=== PATIENT | male | born 1980 | race Hispanic/Latino ===

== ENCOUNTER 2018-07-21 17:31 | Emergency (ER) | payer BC ==
[2018-07-21] MEDS ORDERED: MAGNE/ALUM HYDROXD 30 ML UCUP ONE (18:37)
[2018-07-21] MEDS ORDERED: ONDANSETRON 4 MG/2 ML VIAL ONE (18:37)
[2018-07-21] MEDS ORDERED: LIDOCAINE VISCOUS 2% SOLN 15 ML UDC ONE (18:37)
[2018-07-21] MEDS ORDERED: NA CHLORIDE 0.9% 1,000 ML ONE (18:38)
[2018-07-21] MEDS ORDERED: FAMOTIDINE 20 MG/2 ML VIAL IV ONE (18:38)
[2018-07-21 18:43] LABS: Absolute Monocytes 0.6 K/uL (0.1-1.3); Absolute Neutrophil 4.3 K/uL (1.8-8.0); Basophils % 0.9 % (0-1.3); Eosinophils % 5.3 % (0-4.4); Hematocrit 43.8 % (39.6-49.0); Lymphocytes % 27.1 % (15.3-44.8); MPV 9.4 fL (7.6-11.3); Monocytes % 8.4 % (3.3-12.3); RBC Red Blood Cell Count 4.75 M/uL (4.33-5.43)
[2018-07-21 18:52] LABS: Protime INR 0.94
--- NOTE | 2018-07-21 18:52 | RAD REPORT ---
EXAM DESCRIPTION: RAD - Chest Single View - 07/21/2018 6:45 pm CLINICAL HISTORY: CHEST PAIN Chest pain. COMPARISON: No comparisons FINDINGS: Portable technique limits examination quality. The lungs are grossly clear. The heart is normal in size. No displaced fractures. IMPRESSION: No acute intrathoracic process suspected.
[2018-07-21 19:13] LABS: ALT/SGPT 59 U/L (12-78); AST/SGOT 24 U/L (15-37); Albumin 3.5 g/dL (3.4-5.0); Alkaline Phosphatase 67 U/L (45-117); BUN Blood Urea Nitrogen 15 mg/dL (7-18); Bicarbonate 26 mmol/L (21-32); Bilirubin Direct 0.1 mg/dL (0-0.2); Bilirubin Total 0.4 mg/dL (0.2-1.0); Glucose Level 95 mg/dL (74-106); Lipase 207 U/L (73-393); NT PRO-BNP 82 pg/mL (<125); Potassium 3.7 mmol/L (3.5-5.1); Protein, Total 6.8 g/dL (6.4-8.2); Sodium Level 142 mmol/L (136-145); Troponin (Emerg Dept Use Only) < 0.02 ng/mL (0.0-0.045)
--- NOTE | 2018-07-21 20:18 | ER ---
Nurse's Notes [facility] Name: Heber Morris Age: 37 yrs Sex: Male : 1980 Arrival Date: 07/21/2018 Time: 17:34 Bed 13 Private MD: Ronn Carr R Diagnosis: Epigastric pain Presentation: 07/21 17:36 Presenting complaint: Patient states: midsternal, epigastric area chest pain started sv Thursday, c/o "burping a lot", "hard to breathe". Transition of care: patient was not received from another setting of care. Onset of symptoms was July 18, 2018. Care prior to arrival: None. 17:36 Method Of Arrival: Ambulatory sv 17:36 Acuity: APOLONIA 3 sv 20:33 Risk Assessment: Do you want to hurt yourself or someone else? Patient reports no rr5 desire to harm self or others. Initial Sepsis Screen: Does the patient meet any 2 criteria? No. Patient's initial sepsis screen is negative. Does the patient have a suspected source of infection? No. Patient's initial sepsis screen is negative. Historical: - Allergies: 17:37 No Known Allergies; sv - PMHx: 17:37 None; sv - PSHx: 17:37 Appendectomy; Back; sv - Immunization history:: Adult Immunizations unknown. - Social history:: Smoking status: Patient uses tobacco products. - Ebola Screening: : Patient negative for fever greater than or equal to 101.5 degrees Fahrenheit, and additional compatible Ebola Virus Disease symptoms Patient denies exposure to infectious person Patient denies travel to an Ebola-affected area in the 21 days before illness onset. Screenin:20 Abuse screen: Denies threats or abuse. Denies injuries from another. Nutritional bp screening: No deficits noted. Tuberculosis screening: No symptoms or risk factors identified. Fall Risk None identified. Assessment: 18:00 General: Appears in no apparent distress. comfortable, Behavior is calm, cooperative, bp appropriate for age. Pain: Complains of pain in epigastric area Pain does not radiate. Pain began suddenly. Neuro: Level of Consciousness is awake, alert, obeys commands, Oriented to person, place, time, situation, Appropriate for age. Cardiovascular: Rhythm is sinus rhythm. Respiratory: Airway is patent Respiratory effort is even, unlabored, Respiratory pattern is regular, symmetrical. GI: Reports indigestion. : No signs and/or symptoms were reported regarding the genitourinary system. EENT: No deficits noted. Derm: No deficits noted. Musculoskeletal: Circulation, motion, and sensation intact. Range of motion: intact in all extremities. 19:00 General: Appears in no apparent distress. comfortable, Behavior is calm, cooperative, rr5 appropriate for age. Pain: Complains of pain in back Pain does not radiate. Pain currently is 5 out of 10 on a pain scale. Quality of pain is described as aching, Pain began gradually, Is intermittent, chronic. 19:00 Neuro: Level of Consciousness is awake, alert, obeys commands, Oriented to person, rr5 place, time, situation, Appropriate for age. Cardiovascular: Capillary refill < 3 seconds Patient's skin is warm and dry. Respiratory: Airway is patent Respiratory effort is even, unlabored, Respiratory pattern is regular, symmetrical. GI: Abdomen is round Patient currently denies abdominal pain. : No signs and/or symptoms were reported regarding the genitourinary system. EENT: No signs and/or symptoms were reported regarding the EENT system. Derm: Skin is intact, Skin temperature is warm. Musculoskeletal: Capillary refill < 3 seconds, Range of motion: intact in all extremities. 19:50 Reassessment: Patient appears in no apparent distress at this time. Patient is alert, rr5 oriented x 3, equal unlabored respirations, skin warm/dry/pink. went for ultrasound. 20:30 Reassessment: Patient appears in no apparent distress at this time. Patient is alert, rr5 oriented x 3, equal unlabored respirations, skin warm/dry/pink. ED provider explained the plan of care. discharge instruction given and explained without complaints made. Patient states feeling better. Patient states symptoms have improved. Vital Signs: 17:37 BP 141 / 93; Pulse 96; Resp 20; Temp 97.6; Pulse Ox 97% on R/A; Weight 113.4 kg; Height sv 6 ft. 1 in. (185.42 cm); Pain 4/10; 19:00 BP 122 / 78; Pulse 90; Resp 17; Temp 98.5; Pulse Ox 99% ; Pain 5/10; rr5 20:00 BP 125 / 70; Pulse 89; Resp 17; Pulse Ox 99% ; rr5 20:30 BP 130 / 80; Pulse 76; Resp 17; Pulse Ox 100% ; rr5 17:37 Body Mass Index 32.98 (113.40 kg, 185.42 cm) sv ED Course: 17:34 Patient arrived in ED. mr 17:34 Ronn Carr MD is Private Physician. mr 17:37 Triage completed. sv 17:38 Josh Man, RN is Primary Nurse. bp 17:38 Arm band placed on. sv 17:47 EKG done, by radio frequency technician. reviewed by Fadi Colby MD. sm3 17:50 Fadi Esquivel PA is PHCP. cp 17:50 Fadi Colby MD is Attending Physician. cp 18:20 Patient has correct armband on for positive identification. Bed in low position. Call bp light in reach. Side rails up X2. Adult w/ patient. groundwater monitoring technician on. Pulse ox on. NIBP on. 18:30 Inserted saline lock: 22 gauge in right antecubital area, using aseptic technique. bp Blood collected. Patient maintains SpO2 saturation greater than 95% on room air. 18:46 XRAY Chest (1 view) In Process Unspecified. EDMS 19:57 US Abdomen Limited In Process Unspecified. EDMS 20:32 No provider procedures requiring assistance completed. IV discontinued, intact, rr5 bleeding controlled, No redness/swelling at site. Pressure dressing applied. Administered Medications: 18:20 Drug: Zofran 4 mg Route: IVP; Site: right antecubital; bp 20:30 Follow up: Response: No adverse reaction rr5 18:20 Drug: Pepcid 20 mg Route: IVP; Site: right antecubital; bp 20:30 Follow up: Response: No adverse reaction rr5 18:20 Drug: GI Cocktail without - (Maalox Suspension 30 ml, Lidocaine Liquid 2 % 15 bp ml) Route: PO; 20:35 Follow up: Response: No adverse reaction rr5 18:20 Drug: NS 0.9% 1000 ml Route: IV; Rate: 1 bolus; Site: right antecubital; bp 19:50 Follow up: Response: No adverse reaction; IV Status: Completed infusion; IV Intake: rr5 1000ml Intake: 19:50 IV: 1000ml; Total: 1000ml. rr5 Outcome: 20:17 Discharge ordered by . cp 20:32 Discharged to home ambulatory, with family. rr5 20:32 Condition: stable 20:32 Discharge instructions given to patient, Instructed on discharge instructions, follow up and referral plans. medication usage, Demonstrated understanding of instructions, follow-up care, medications, Prescriptions given X 2. 20:34 Patient left the ED. rr5 Signatures: Dispatcher [employer] EDZoë Matthew RN RN Laxmi Pemberton, JOHANA Aponte cp, Brian, RN RN Ama Kwok [facility] Jossue Tang RN RN rr5
--- NOTE | 2018-07-21 20:18 | EDPHYS ---
Physician Documentation [facility] Name: Heber Morris Age: 37 yrs Sex: Male : 1980 Arrival Date: 07/21/2018 Time: 17:34 Bed 13 Private MD: Ronn Carr R ED Physician Fadi Colby HPI: 07/21 18:00 This 37 yrs old Male presents to ER via Ambulatory with complaints of Chest cp Pain. 18:00 The patient or guardian reports chest pain that is located primarily in the substernal cp area, epigastric area. The pain does not radiate. Associated signs and symptoms: Pertinent positives: nausea, Pertinent negatives: cough, diaphoresis, lower extremity pain, lower extremity swelling, shortness of breath. 18:00 The chest pain is described as aching. cp 18:00 Duration: The patient or guardian reports a single episode, that is still ongoing, cp onset 3 days ago. Historical: - Allergies: 17:37 No Known Allergies; sv - PMHx: 17:37 None; sv - PSHx: 17:37 Appendectomy; Back; sv - Immunization history:: Adult Immunizations unknown. - Social history:: Smoking status: Patient uses tobacco products. - Ebola Screening: : Patient negative for fever greater than or equal to 101.5 degrees Fahrenheit, and additional compatible Ebola Virus Disease symptoms Patient denies exposure to infectious person Patient denies travel to an Ebola-affected area in the 21 days before illness onset. ROS: 18:05 Constitutional: Negative for body aches, chills, fever, poor PO intake. cp 18:05 Eyes: Negative for injury, pain, redness, and discharge. cp 18:05 ENT: Negative for drainage from ear(s), ear pain, sore throat, difficulty swallowing, difficulty handling secretions. 18:05 Cardiovascular: Positive for chest pain, of the retrosternal, Negative for edema, palpitations. 18:05 Respiratory: Negative for cough, shortness of breath, wheezing. 18:05 Abdomen/GI: Positive for abdominal pain, nausea, of the epigastric area, Negative for vomiting, diarrhea, constipation, dysphagia, black/tarry stool, rectal bleeding. 18:05 Back: Negative for pain at rest, pain with movement, radiated pain. 18:05 : Negative for urinary symptoms, testicular pain 18:05 Skin: Negative for cellulitis, rash. 18:05 Neuro: Negative for altered mental status, headache, weakness. 18:05 All other systems are negative. Exam: 18:00 ECG was reviewed by the Attending Physician. cp 18:10 Constitutional: The patient appears in no acute distress, alert, awake, cp non-diaphoretic, non-toxic, well developed, well nourished. 18:10 Head/Face: Normocephalic, atraumatic. cp 18:10 Eyes: Periorbital structures: appear normal, Conjunctiva: normal, no exudate, no injection, Sclera: no appreciated abnormality, Lids and lashes: appear normal, bilaterally. 18:10 ENT: External ear(s): are unremarkable, Nose: is normal, Mouth: Lips: moist, Oral mucosa: pink and intact, moist, Posterior pharynx: is normal, airway is patent, no erythema, no exudate. 18:10 Neck: ROM/movement: is normal, is supple, without pain, no range of motions limitations, no nuchal rigidity. 18:10 Chest/axilla: Inspection: normal, Palpation: is normal, no crepitus, no tenderness. 18:10 Cardiovascular: Rate: normal, Rhythm: regular, Pulses: Pulses are 2+ in right radial artery and left radial artery. Edema: is not appreciated, JVD: is not appreciated. 18:10 Respiratory: the patient does not display signs of respiratory distress, Respirations: normal, no use of accessory muscles, no retractions, no splinting, no tachypnea, labored breathing, is not present, Breath sounds: are clear throughout, no decreased breath sounds, no stridor, no wheezing. 18:10 Abdomen/GI: Inspection: abdomen appears normal, Bowel sounds: active, all quadrants, Palpation: soft, in all quadrants, moderate abdominal tenderness, in the epigastric area, voluntary guarding, is not appreciated, involuntary guarding, is not appreciated. 18:10 Back: pain, is absent, ROM is normal. 18:10 Skin: cellulitis, is not appreciated, no rash present. 18:10 Neuro: Orientation: to person, place \T\ time. Mentation: is normal, Cerebellar function: is grossly normal, Motor: moves all fours, strength is normal, Sensation: is normal. Vital Signs: 17:37 BP 141 / 93; Pulse 96; Resp 20; Temp 97.6; Pulse Ox 97% on R/A; Weight 113.4 kg; Height sv 6 ft. 1 in. (185.42 cm); Pain 4/10; 19:00 BP 122 / 78; Pulse 90; Resp 17; Temp 98.5; Pulse Ox 99% ; Pain 5/10; rr5 20:00 BP 125 / 70; Pulse 89; Resp 17; Pulse Ox 99% ; rr5 20:30 BP 130 / 80; Pulse 76; Resp 17; Pulse Ox 100% ; rr5 17:37 Body Mass Index 32.98 (113.40 kg, 185.42 cm) sv MDM: 17:50 Patient medically screened. cp 20:15 Data reviewed: vital signs, nurses notes, lab test result(s), EKG, radiologic studies, cp plain films, ultrasound. 20:15 Test interpretation: by ED physician or midlevel provider: ECG, plain radiologic cp studies. Counseling: I had a detailed discussion with the patient and/or guardian regarding: the historical points, exam findings, and any diagnostic results supporting the discharge/admit diagnosis, lab results, radiology results, the need for outpatient follow up, a family practitioner, to return to the emergency department if symptoms worsen or persist or if there are any questions or concerns that arise at home. Response to treatment: the patient's symptoms have markedly improved after treatment, and as a result, I will discharge patient. 07/21 18:10 Order name: Basic Metabolic Panel; Complete Time: 19: cp 07/21 18:10 Order name: CBC with Diff; Complete Time: : cp 07/21 18:10 Order name: LFT's; Complete Time: 19:22 cp 07/21 18:10 Order name: Magnesium; Complete Time: 19:22 cp 07/21 18:10 Order name: NT PRO-BNP; Complete Time: 19:22 cp 07/21 18:10 Order name: PT-INR; Complete Time: 19:22 cp 07/21 18:10 Order name: Troponin (emerg Dept Use Only); Complete Time: 19:22 cp 07/21 18:10 Order name: XRAY Chest (1 view); Complete Time: 19:22 cp 07/21 19:22 Interpretation: Report review. cp 07/21 18:10 Order name: Lipase; Complete Time: 19:22 cp 07/21 19:35 Order name: US Abdomen Limited cp 07/21 18:01 Order name: EKG - Nurse/Tech; Complete Time: 18:35 cp 07/21 18:03 Order name: EKG Electrocardiogram; Complete Time: 18:45 EDMS 07/21 18:10 Order name: Cardiac monitoring; Complete Time: 18:35 cp 07/21 18:10 Order name: IV Saline Lock; Complete Time: 18:35 cp 07/21 18:10 Order name: Labs collected and sent; Complete Time: 18:35 cp 07/21 18:10 Order name: O2 Per Protocol; Complete Time: 18:35 cp 07/21 18:10 Order name: O2 Sat Monitoring; Complete Time: 18:35 cp 07/21 19:35 Order name: NPO; Complete Time: 19:39 cp EC:00 Rate is 85 beats/min. Rhythm is regular. GA interval is normal. QRS interval is normal. cp QT interval is normal. Interpreted by me. Reviewed by me. Administered Medications: 18:20 Drug: Zofran 4 mg Route: IVP; Site: right antecubital; bp 20:30 Follow up: Response: No adverse reaction rr5 18:20 Drug: Pepcid 20 mg Route: IVP; Site: right antecubital; bp 20:30 Follow up: Response: No adverse reaction rr5 18:20 Drug: GI Cocktail without - (Maalox Suspension 30 ml, Lidocaine Liquid 2 % 15 bp ml) Route: PO; 20:35 Follow up: Response: No adverse reaction rr5 18:20 Drug: NS 0.9% 1000 ml Route: IV; Rate: 1 bolus; Site: right antecubital; bp 19:50 Follow up: Response: No adverse reaction; IV Status: Completed infusion; IV Intake: rr5 1000ml Disposition: 07/22 08:22 Co-signature as Attending Physician, Fadi Colby MD I agree with the assessment and julia plan of care. Disposition: 07/21/18 20:17 Discharged to Home. Impression: Epigastric pain. - Condition is Stable. - Discharge Instructions: Gastroesophageal Reflux Disease, Adult. - Prescriptions for Protonix 40 mg Oral Tablet - take 1 tablet by ORAL route once daily; 30 tablet. Zofran 4 mg Oral Tablet - take 1 tablet by ORAL route every 12 hours As needed; 20 tablet. - Medication Reconciliation Form, Thank You Letter, Antibiotic Education, Prescription Opioid Use, Work release form form. - Follow up: Private Physician; When: 2 - 3 days; Reason: Recheck today's complaints. - Problem is new. - Symptoms have improved. Signatures: Dispatcher [employer] Zoë Barcenas RN RN Fadi Castrejon MD MD cha Page, Corey, PA PA cp Josh Man RN RN Jossue Brown RN RN rr5 Corrections: (The following items were deleted from the chart) 07/21 20:34 20:17 07/21/2018 20:17 Discharged to Home. Impression: Epigastric pain. Condition is rr5 Stable. Forms are Medication Reconciliation Form, Thank You Letter, Antibiotic Education, Prescription Opioid Use. Follow up: Private Physician; When: 2 - 3 days; Reason: Recheck today's complaints. Problem is new. Symptoms have improved. cp
--- NOTE | 2018-07-21 20:31 | RAD REPORT ---
EXAM DESCRIPTION: US - Abdomen Exam Limited - 07/21/2018 7:57 pm CLINICAL HISTORY: EPIGASTRIC PAIN COMPARISON: No comparisons FINDINGS: The gallbladder demonstrates contraction. Intraluminal contents are thus poorly assessed w ithin the gallbladder. No pericholecystic fluid or gallbladder wall thickening. The common bile duct is normal measuring 2 mm. The liver demonstrates no findings of intrahepatic biliary dilatation. IMPRESSION: Panda gallbladder.
--- NOTE | 2018-07-22 10:46 | EKG ---
Test Date: 2018-07-21 Test Time: 17:42:52 Rail Setter: CEDRIC MEASUREMENT RESULTS: Intervals: Rate: 85 MD: 130 QRSD: 98 QT: 346 QTc: 411 [place]: P: 45 MD: 130 QRS: 60 T: 34 INTERPRETIVE STATEMENTS: Normal sinus rhythm Normal ECG No previous ECG available for comparison Electronically Signed On 07-22-18 10:43:36 CDT by Mio Denson
== END 2018-07-21 20:34 | disposition home or self-care (01) ==
LOC: ER 17:31
DX: R10.13 Epigastric pain (principal); Z72.0 Tobacco use
CPT/HCPCS: 36415; 71045; 76705; 80048; 80076; 83690; 83735; 83880; 84484; 85025; 85610; 93005; 96361; 96374; 96375; 99285; J2405; J7030

== ENCOUNTER 2022-01-13 23:09 | Observation (INO) | payer BC ==
--- NOTE | 2022-01-13 23:36 | EDPHYS ---
Physician Documentation [facility] Name: Heber Morris Age: 41 yrs Sex: Male : 1980 Arrival Date: 01/13/2022 Time: 23:13 Bed 23 Private MD: ED Physician Pedro Booth HPI: 01/13 23:36 This 41 yrs old Male presents to ER via Ambulatory with complaints of Abscess, kdr Wound Infection. 23:36 The patient presents with an abscess of the perineum. Description: The affected area is kdr moderate sized, erythematous, hot, raised, swollen, tense, warm. Onset: The symptoms/episode began/occurred suddenly, 2 day(s) ago. Possible cause(s): unknown. Modifying factors: the symptoms are alleviated by nothing, the symptoms are aggravated by movement, walking, pressure, squeezing the lesion and expressing the contents, touching. Severity of symptoms: At their worst the symptoms were moderate, in the emergency department the symptoms are unchanged. The patient has experienced a previous episode, Patient states he had an abscess on his leg and required I\T\D. The patient has not recently seen a physician. Historical: - Allergies: 23:25 No Known Allergies; aa9 - Home Meds: 23:25 None [Active]; aa9 - PMHx: 23:25 None; aa9 - PSHx: 23:25 2 backk surgeries; Appendectomy; aa9 - Immunization history:: Client reports having NOT received the Covid vaccine. Flu vaccine is not up to date. - Social history:: Smoking status: Patient reports the use of cigarette tobacco products, smokes one pack cigarettes per day. ROS: 23:36 Constitutional: Negative for fever, chills, and weight loss, Eyes: Negative for injury, kdr pain, redness, and discharge, ENT: Negative for injury, pain, and discharge, Neck: Negative for injury, pain, and swelling, Cardiovascular: Negative for chest pain, palpitations, and edema, Respiratory: Negative for shortness of breath, cough, wheezing, and pleuritic chest pain, Abdomen/GI: Negative for abdominal pain, nausea, vomiting, diarrhea, and constipation, Back: Negative for injury and pain, : Negative for injury, bleeding, discharge, and swelling, MS/Extremity: Negative for injury and deformity, Neuro: Negative for headache, weakness, numbness, tingling, and seizure activity. Psych: Negative for depression, anxiety, suicide ideation, homicidal ideation, and hallucinations, Allergy/Immunology: Negative for hives, rash, and allergies, Endocrine: Negative for neck swelling, polydipsia, polyuria, polyphagia, and marked weight changes, Hematologic/Lymphatic: Negative for swollen nodes, abnormal bleeding, and unusual bruising. 23:36 Skin: Positive for abscess, cellulitis, erythema, Negative for Exam: 23:36 Constitutional: This is a well developed, well nourished patient who is awake, alert, kdr and in no acute distress. Head/Face: Normocephalic, atraumatic. 23:36 Skin: abscess, that is moderate sized, with induration, with surrounding cellulitis, that is mild, that is moderate, cellulitis, that is mild, that is moderate, induration, that is moderate is noted, located on the perineum. Vital Signs: 23:23 BP 147 / 97; Pulse 92; Resp 20 S; Temp 97.7(O); Pulse Ox 99% on R/A; Weight 104.33 kg aa9 (R); Height 6 ft. 1 in. (185.42 cm) (R); Pain 8/10; 01/14 03:30 BP 132 / 97; Pulse 72; Resp 16; Pulse Ox 99% on R/A; jb4 01/13 23:23 Body Mass Index 30.34 (104.33 kg, 185.42 cm) aa9 MDM: 01/13 23:35 Patient medically screened. kdr 23:36 Data reviewed: vital signs. Counseling: I had a detailed discussion with the patient kdr and/or guardian regarding: radiology results. 01/13 23:40 Order name: CBC with Diff kdr 01/13 23:40 Order name: Chem 7 kdr 01/13 23:52 Order name: Basic Metabolic Panel EDMS 01/13 23:52 Order name: Basic Metabolic Panel EDMS 01/13 23:52 Order name: CBC with Automated Diff EDMS 01/13 23:52 Order name: CBC with Automated Diff EDMS 01/13 23:40 Order name: US Extrmty Nonvasular Limited kdr 01/13 23:52 Order name: NPO EDMS 01/13 23:57 Order name: SARS RAPID as6 01/14 00:41 Order name: SARS-COV-2 Antigen Rapid EDMS Administered Medications: 01/14 00:17 Drug: Clindamycin 900 mg Route: IVPB; Infused Over: 30 mins; Site: right antecubital; as6 00:17 Drug: LevaQUIN (levofloxacin) 500 mg Route: PO; as 00:17 Drug: morphine 4 mg Route: IVP; Infused Over: 4 mins; Site: right antecubital; as6 Disposition Summary: 01/13/22 23:35 Hospitalization Ordered Hospitalization Status: Observation kdr Provider: Dio Locke Condition: Fair kdr Problem: new kdr Symptoms: are unchanged kdr Bed/Room Type: Standard kdr Location: Telemetry/MedSurg (observation)(01/14/22 03:58) mw Room Assignment: [facility](01/14/22 03:58) Diagnosis - Cutaneous abscess of perineum kdr Forms: - Medication Reconciliation Form kdr - SBAR form kdr Signatures: Dispatcher [employer] EDMS Susana Bryan RN RN Pedro Booth MD MD kdr Oleksandr Lawson RN RN as6 Dennise Gama RN RN aa9 Corrections: (The following items were deleted from the chart) 00:04 01/13 23:35 Telemetry/MedSurg (observation) kdr 01/14 00:04 01/13 23:35 kdr 01/14 03:58 00:04 [facility] ER HOLD [facility] 03:58 00:04 ERHOLD- mw
--- NOTE | 2022-01-13 23:36 | ER ---
Nurse's Notes [facility] Name: Heber Morris Age: 41 yrs Sex: Male : 1980 Arrival Date: 01/13/2022 Time: 23:13 Bed 23 Private MD: Diagnosis: Cutaneous abscess of perineum Presentation: 01/13 23:23 Chief complaint: Patient states: I am prone to staph I had it in my left lower left aa9 before. I think its in this abscesses. its right in my crack of my butt on the bottom near my butt hole. It hurts really bad. Coronavirus screen: Vaccine status: Patient reports being unvaccinated. Ebola Screen: No symptoms or risks identified at this time. Initial Sepsis Screen: Does the patient meet any 2 criteria? No. Patient's initial sepsis screen is negative. Does the patient have a suspected source of infection? Yes:. Risk Assessment: Do you want to hurt yourself or someone else? Patient reports no desire to harm self or others. Onset of symptoms was January 13, 2022. 23:23 Method Of Arrival: Ambulatory aa9 23:23 Acuity: APOLONIA 4 aa9 Triage Assessment: 23:25 General: Appears uncomfortable, Behavior is cooperative, anxious. Pain: Complains of aa9 pain in gluteal cleft Pain radiates to right gluteus jaimie Pain currently is 8 out of 10 on a pain scale. Aggravated by increased activity. Historical: - Allergies: 23:25 No Known Allergies; aa9 - Home Meds: 23:25 None [Active]; aa9 - PMHx: 23:25 None; aa9 - PSHx: 23:25 2 backk surgeries; Appendectomy; aa9 - Immunization history:: Client reports having NOT received the Covid vaccine. Flu vaccine is not up to date. - Social history:: Smoking status: Patient reports the use of cigarette tobacco products, smokes one pack cigarettes per day. Screenin:26 Abuse screen:. Abuse screen: Denies threats or abuse. Denies injuries from another. aa9 Nutritional screening: No deficits noted. Tuberculosis screening: No symptoms or risk factors identified. Fall Risk None identified. Assessment: 01/14 01:00 Reassessment: Patient appears in no apparent distress at this time. Patient and/or jb4 family updated on plan of care and expected duration. Pain level reassessed. Patient is alert, oriented x 3, equal unlabored respirations, skin warm/dry/pink. 02:00 Reassessment: Patient appears in no apparent distress at this time. Patient and/or jb4 family updated on plan of care and expected duration. Pain level reassessed. Patient is alert, oriented x 3, equal unlabored respirations, skin warm/dry/pink. 03:00 Reassessment: Patient appears in no apparent distress at this time. Patient and/or jb4 family updated on plan of care and expected duration. Pain level reassessed. Patient is alert, oriented x 3, equal unlabored respirations, skin warm/dry/pink. Vital Signs: 01/13 23:23 BP 147 / 97; Pulse 92; Resp 20 S; Temp 97.7(O); Pulse Ox 99% on R/A; Weight 104.33 kg aa9 (R); Height 6 ft. 1 in. (185.42 cm) (R); Pain 8/10; 01/14 03:30 BP 132 / 97; Pulse 72; Resp 16; Pulse Ox 99% on R/A; jb4 01/13 23:23 Body Mass Index 30.34 (104.33 kg, 185.42 cm) aa9 ED Course: 01/13 23:13 Patient arrived in ED. bp1 23:16 Pedro Booth MD is Attending Physician. kdr 23:25 Triage completed. aa9 23:26 Arm band placed on. aa9 23:34 Dio Locke MD is Hospitalizing Provider. kdr 23:56 Oleksandr Lawson RN is Primary Nurse. as6 01/14 00:00 Inserted saline lock: 20 gauge in right antecubital area, using aseptic technique. mw1 00:47 Placed in gown. Bed in low position. Call light in reach. Side rails up X2. as6 00:47 No provider procedures requiring assistance completed. Patient admitted, IV remains in as6 place. Administered Medications: 00:17 Drug: Clindamycin 900 mg Route: IVPB; Infused Over: 30 mins; Site: right antecubital; as6 00:17 Drug: LevaQUIN (levofloxacin) 500 mg Route: PO; as6 00:17 Drug: morphine 4 mg Route: IVP; Infused Over: 4 mins; Site: right antecubital; as6 Medication: 00:47 VIS not applicable for this client. as6 Outcome: 01/13 23:35 Decision to Hospitalize by Provider. kdr 01/14 00:48 Admitted to ER Hold. Please see [facility] for further documentation. as6 Condition: stable Instructed on the need for admit. 05:49 Patient left the ED. jb4 Signatures: Pedro Booth MD MD kdr Bryson, James RN RN jb4 Jesus Alberto Lu 1 Anne-Marie Sanchez Ashby, RN RN as6 Dennise Gama, RN RN aa9
[2022-01-13] MEDS ORDERED: D5 0.45 NS 1,000 ML IV SCH (23:45)
[2022-01-13] MEDS ORDERED: ONDANSETRON 4 MG/2 ML VIAL IV PRN (23:46)
[2022-01-13] MEDS ORDERED: ACETAMINOPHEN 500 MG TAB PO PRN (23:46)
[2022-01-14 00:13] LABS: Hematocrit 43.3 % (39.6-49.0); MCV 90.2 fL (80-100); MPV 9.1 fL (7.6-11.3)
[2022-01-14] MEDS ORDERED: levoFLOXacin 250 MG TAB ONE (00:16)
[2022-01-14] MEDS ORDERED: MORPHINE 4 MG/ML SYR ONE ×2 (00:16→04:23)
[2022-01-14] MEDS ORDERED: CLINDAMYCIN 900MG/D5W 900 MG/50 ML IVPB IV ONE (00:16)
[2022-01-14 00:22] LABS: Potassium 3.6 mmol/L (3.5-5.1)
[2022-01-14 00:41] LABS: SARS-CoV-2 Antigen Rapid Res Negative (Negative)
[2022-01-14 02:22] LABS: Hematocrit 44.2 % (39.6-49.0); Lymphocytes % 19.2 % (15.3-44.8); MCV 91.6 fL (80-100); MPV 9.1 fL (7.6-11.3); RBC Red Blood Cell Count 4.82 M/uL (4.33-5.43)
[2022-01-14 02:32] LABS: Potassium 4.3 mmol/L (3.5-5.1)
[2022-01-14] MEDS ORDERED: D5 0.45 NS 1,000 ML IV ONE (03:39)
[2022-01-14 04:10] VITALS: BMI 30.3
[2022-01-14] MEDS: MORPHINE 4 MG/ML SYR IV PRN ×3 (04:22→11:54)
[2022-01-14] MEDS ORDERED: CLINDAMYCIN PHOSPHATE 300 MG in NA CHLORIDE 0.9% 50 ML IV SCH (06:00)
--- NOTE | 2022-01-14 09:50 | PREOPHP ---
Date of Admission: 01/13/2022 Reason: Perineal pain. History Of Present Illness: Patient is a 41-year-old gentleman, who comes in with right-sided perine al pain over the last several days, which has progressively gotten worse. He denies any drainage or fever or chills. He does state that it is warm and hot and swollen and very tender to the touch. Th erefore, he came to the emergency room. No sore throat, runny nose, cough, headaches, or dizziness. No chest pain. No fever or chills. Review of Systems: Otherwise, unremarkable. Past Medical History: Negative. Past Surgical History: Back surgery, appendectomy, and left leg surgery. Allergies: NO ALLERGIES. Social History: Patient does smoke, has been counseled, and drinks occasionally. Family History: Noncontributory. Physical Examination: Vital Signs: Stable. He is afebrile. General: He is awake, alert, and oriented x3. Head and Neck: No masses. Chest: Clear. Heart: S1, S2. Abdomen: Soft. Extremities: Neurovascularly intact. Neuro: Nonfocal. Genitourinary: On the right side of his perineal body between the anus and the bottom of the scrotum , there is approximately a 4 cm area of warmth, erythema, edema, exquisite tenderness with central fl uctuance. Ultrasound is consistent with a superficial abscess. Laboratory Data: Reviewed. White count is 10.6. Chemistry reviewed, essentially within normal limi ts. Assessment: Perineal abscess and cellulitis. Recommendation: Admit, n.p.o., IV fluid, IV antibiotic, to the OR for exam under anesthesia, rigid p roctoscopy, and incision and drainage and debridement of perineal abscess. Patient understands the r isks, benefits, and alternatives and agrees to procedure. GATO/PHILIP Voice ID: [id number]
[2022-01-14] MEDS ORDERED: CLINDAMYCIN PHOSPHATE 300 MG in NA CHLORIDE 0.9% 50 ML IV ONE (12:00)
[2022-01-14] MEDS ORDERED: MIDAZOLAM HCL 2 MG/2 ML INJ ONE ×2 (12:24→13:15)
[2022-01-14] MEDS ORDERED: propofoL 200 MG/20 ML VIAL IV ONE ×2 (12:24→13:06)
[2022-01-14] MEDS ORDERED: FENTANYL CITR 100 MCG/2 ML ONE ×3 (12:24→13:14)
[2022-01-14] MEDS ORDERED: LIDOCAINE 1% MPF 5 ML VIAL ONE ×2 (12:25→13:07)
[2022-01-14] MEDS ORDERED: Ringers Lactate 1,000 ML IV ONE (12:39)
[2022-01-14] MEDS ORDERED: CEFOXITIN SODIUM 1 GM/VIAL ONE (12:53)
[2022-01-14] MEDS ORDERED: BUPIVACAINE 0.5% PF 10 ML VIAL ONE (13:08)
[2022-01-14] MEDS: HYDROMORPHONE HCL 1 MG/ML INJ ONE ×4 (14:26→14:46)
[2022-01-14] MEDS ORDERED: HYDROMORPHONE HCL 1 MG/ML INJ IV PRN (14:46)
[2022-01-14] MEDS ORDERED: ONDANSETRON 4 MG/2 ML VIAL IV PRN (14:46)
[2022-01-14] MEDS ORDERED: CHLORHEXIDINE GLUCO 4% 120 ML TOP SCH (15:00)
--- NOTE | 2022-01-14 15:39 | EKG ---
Test Date: 2022-01-14 Test Time: 08:16:34 Bootmaker: ELSA MEASUREMENT RESULTS: Intervals: Rate: 64 NE: 162 QRSD: 106 QT: 388 QTc: 400 [place]: P: 67 NE: 162 QRS: 69 T: 48 INTERPRETIVE STATEMENTS: Normal sinus rhythm Normal ECG Compared to ECG 07/21/2018 17:42:52 No significant changes Electronically Signed On 01-14-22 15:38:22 CDT by Jessee Hansen
[2022-01-14] MEDS: HYDROCODONE/APAP 7.5/325 MG TAB PO PRN ×2 (16:10→20:35)
[2022-01-14] MEDS: METRONIDAZOLE 500mg IVPB 500 MG/100 ML BAG IV SCH (16:12)
--- NOTE | 2022-01-14 16:13 | RAD REPORT ---
EXAM DESCRIPTION: US - Extremity Nonvascular Limited - 01/14/2022 12:29 am CLINICAL HISTORY: 41 years, Male, Pain Extremity Nonvascular Limited COMPARISON: None.. FINDINGS: Multiple grayscale images of the right perineum/transgluteal area were performed. There is a superficial subcutaneous complex hypoechoic/anechoic area within the right perineum close to the urogenital triangle in the right anterior gluteal region with increase rim vascularity corresp onding to most likely an abscess, measuring 1.7 x 1.6 x 1.6 cm. IMPRESSION: Superficial subcutaneous complex hypoechoic/anechoic area close to the urogenital triang le in the right anterior gluteal region with increase rim vascularity corresponding to most likely a superficial abscess. Electronically signed by: Jose A Roth MD 01/14/2022 12:53 AM CDT Due to temporary technical issues with the PACS/Fluency reporting system, reports are being signed by the in house radiologists without review as a courtesy to insure prompt reporting. The interpreting radiologist is fully responsible for the content of the report.
[2022-01-14] MEDS: CIPROFLOXACIN 400mg IV 400 MG/200 ML BAG IV SCH (20:36)
[2022-01-14] MEDS: MUPIROCIN 2% OINT 22GM TUBE TOP SCH (21:00)
[2022-01-15] MEDS: METRONIDAZOLE 500mg IVPB 500 MG/100 ML BAG IV SCH ×2 (01:03→08:24)
[2022-01-15] MEDS: HYDROCODONE/APAP 7.5/325 MG TAB PO PRN ×2 (02:05→08:23)
--- NOTE | 2022-01-15 03:25 | OP ---
Date of Procedure: 01/14/2022 Surgeon: Dio Locke MD Train Operations Supervisor: None. Preoperative Diagnosis: Right perineal abscess. Postoperative Diagnosis: Right perineal abscess. Procedure: Exam under anesthesia, rigid proctoscopy, incision and drainage and debridement of right perineal abscess. Estimated Blood Loss: Minimal. Specimen: Pus. Findings: As above. Patient also has internal hemorrhoids on proctoscopy in the anterior midline. Anesthesia: MAC. Complications: None. Disposition: The patient tolerated the procedure in stable condition and taken to Recovery in good g eneral condition. Procedure In Detail: The patient was brought to the OR and placed in supine position. General anest hesia was begun. Patient placed in the lithotomy position. Prepped and draped in the usual sterile fashion. Exam under anesthesia revealed a 4 x 4 cm area of induration, redness, and warmth in the ri ght perineal body. Proctoscopy performed, no internal openings identified and there was an anterior and internal hemorrhoid present, it was not bleeding nor thrombosed. Subsequently, Marcaine 0 5% inf iltrated locally, then 15 blade was used to make approximately 3 cm incision over the fluctuant part of the abscess. Subcutaneous tissue was divided. Pus evacuated. Cultures and necrotic tissue debri ded with a curette and scissors. Wound irrigated and bleeding controlled with cautery and wet-to-dry normal saline dressing change applied. Patient tolerated the procedure in stable condition and taken to Recovery i n good general condition. /MODL Voice ID: [id number] Report ID: [id number]
[2022-01-15 04:22] LABS: Absolute Lymphocytes (CBC) 1.7 K/uL (0.7-4.9); Hematocrit 40.2 % (39.6-49.0); Lymphocytes % 22.4 % (15.3-44.8); MCV 90.2 fL (80-100); RBC Red Blood Cell Count 4.45 M/uL (4.33-5.43)
[2022-01-15] MEDS: CIPROFLOXACIN 400mg IV 400 MG/200 ML BAG IV SCH (08:58)
--- NOTE | 2022-01-15 09:12 | P.DS ---
Admission Date: 01/13/22 Discharge Date: 01/15/22 Disposition: ROUTINE DISCHARGE Discharge Condition: GOOD Brief History of Present Illness: 41-year-old gentleman presented to the emergency room with perineal pain and work-up revealed a perineal abscess. Hospital Course: Patient was admitted for IV antibiotics and made n.p.o. The following day patient was taken to the operating room for exam under anesthesia, rigid proctoscopy and incision, drainage and debridement of the perineal abscess. Postoperatively, patient is tolerating diet, ambulating, pain is controlled on p.o. pain medication and patient is afebrile. Therefore, patient will be discharged to home. Disposition: Home Condition: Stable Activity: As tolerated no heavy lifting Next Sitz bath after bowel movement and wet-to-dry normal saline dressing changes daily. Antibiotics and pain medication called into patient's pharmacy. Vital Signs/Physical Exam: Temp Pulse Resp BP Pulse Ox 97.2 F 66 17 128/79 96 01/15/22 08:00 01/15/22 08:00 01/15/22 08:23 01/15/22 08:00 01/15/22 08:23 Laboratory Data at Discharge: WBC 7.50 K/uL (4.3-10.9) D 01/15/22 03:37 Hgb 14.0 g/dL (13.6-17.9) 01/15/22 03:37 Hct 40.2 % (39.6-49.0) 01/15/22 03:37 Plt Count 158 K/uL (152-406) 01/15/22 03:37 Sodium 140 mmol/L (136-145) 01/14/22 02:11 Potassium 4.3 mmol/L (3.5-5.1) 01/14/22 02:11 BUN 15 mg/dL (7-18) 01/14/22 02:11 Creatinine 1.14 mg/dL (0.55-1.3) 01/14/22 02:11 Glucose 89 mg/dL (74-106) 01/14/22 02:11 Home Medications: NK [No Home Meds] 01/14/22 Physician Discharge Instructions: Wet-to-dry normal saline dressing changes daily Cipro, Flagyl and Tylenol 3 have been called into patient's pharmacy Sitz bath after BM Incentive spirometry as ordered Diet: Regular Activity: No lifting more than 10 lbs Followup: Ronn Carr MD [Primary Care Provider] - Dio Locke MD [ACTIVE - CAN ADMIT] - 1-2 Weeks
[2022-01-15 09:14] VITALS: O2SAT 96
[2022-01-15] MEDS: MUPIROCIN 2% OINT 22GM TUBE TOP SCH (11:15)
[2022-01-15 11:56] VITALS: BP 123/57; TEMP 97.5
== END 2022-01-15 15:30 | disposition home or self-care (01) ==
LOC: ER 23:09 → ERHOLD 23:53 → 4TH 01-14 04:10
PROVIDERS: ADMIT Surgery; ATTEND Surgery
PROC: 0DJD8ZZ Inspection of Lower Intestinal Tract, Via Natural or Artificial Opening Endoscopic (ICD-10-PCS; 2022-01-14)
PROC: 0J9B0ZZ Drainage of Perineum Subcutaneous Tissue and Fascia, Open Approach (ICD-10-PCS; principal; 2022-01-14 12:45)
DX: L02.215 Cutaneous abscess of perineum (principal); K64.8 Other hemorrhoids; F17.210 Nicotine dependence, cigarettes, uncomplicated; Z28.310 Unvaccinated for COVID-19; Z20.822 Contact with and (suspected) exposure to COVID-19
CPT/HCPCS: 36415; 76882; 80048; 85025; 87070; 87075; 87205; 87811; 93005; 94010; 96374; 96375; 99285; G0378; J0694; J0744; J1170; J2001; J2250; J2704; J3010; J7120; J7799; S0077

== ENCOUNTER → 2023-07-09 | Emergency (ER) | payer BC ==
[~2023-07-09] MED LIST: KETOROLAC 30 MG/ML INJ ONE; METHOCARBAMOL 1,000 MG/10 ML VIAL ONE; NA CHLORIDE 0.9% 1,000 ML ONE; NA CHLORIDE 0.9% 100 ML ONE
[2023-07-09 15:20] LABS: Absolute Basophils 0.1 K/uL (0-0.5); Absolute Lymphocytes (CBC) 2.4 K/uL (0.7-4.9); Hematocrit 46.5 % (39.6-49.0); Lymphocytes % 27.9 % (15.3-44.8); MCV 91.2 fL (80-100); MPV 9.6 fL (7.6-11.3); Platelets 169 thou/uL (152-406); RBC Red Blood Cell Count 5.09 M/uL (4.33-5.43)
[2023-07-09 15:30] LABS: Anion Gap 6.1 mEq/L (5.0-15.0); Potassium 4.1 mEq/L (3.5-5.1); Troponin High Sensitivity 6.6 pg/mL (<58.9)
[2023-07-09 15:32] LABS: Albumin 3.5 g/dL (3.4-5.0); Albumin/Globulin Ratio 0.9 (1.1-1.8); Bilirubin Direct 0.1 mg/dL (0-0.2); Bilirubin Indirect, Calculated 0.7 mg/dL (0.2-0.8); Bilirubin Total 0.8 mg/dL (0.2-1.0); Protein, Total 7.4 g/dL (6.4-8.2)
[2023-07-09 15:38] LABS: SARS-CoV-2 Antigen Rapid Res Negative (Negative)
--- NOTE | 2023-07-09 16:00 | RAD REPORT ---
EXAM DESCRIPTION: [place] Single View07/09/2023 3:08 pm CLINICAL HISTORY: CHEST PAIN COMPARISON: Chest Single View dated 07/21/2018 TECHNIQUE: Portable AP view of the chest. FINDINGS: The lungs are clear. No pneumothorax or effusion. The cardiomediastinal contours are unre markable. IMPRESSION: No acute cardiopulmonary process.
[2023-07-09 16:37] LABS: Specific Gravity 1.016 (1.005-1.030); Urine Bacteria None Seen /HPF (<20); Urine Bilirubin NEGATIVE (Negative); Urine Blood Negative (Negative); Urine Clarity Clear (Clear); Urine Color Light-Yellow (Yellow); Urine Glucose NEGATIVE (Negative); Urine Mucus Slight /HPF (None Seen); Urine Protein NEGATIVE (Negative); Urine RBC <5 /HPF (None Seen); Urine Urobilinogen Normal (Normal)
[2023-07-09 16:48] LABS: Barbiturates NEGATIVE (NEGATIVE); Benzodiazepines NEGATIVE (NEGATIVE); Cocaine POSITIVE (NEGATIVE); METHAMPHETAM NEGATIVE (NEGATIVE); Methadone NEGATIVE (NEGATIVE); Opiates NEGATIVE (NEGATIVE); Phencyclidine NEGATIVE (NEGATIVE); THC Cannibis POSITIVE (NEGATIVE)
--- NOTE | 2023-07-09 17:28 | EDPHYS ---
Physician Documentation [facility] Name: Heber Morris Age: 42 yrs Sex: Male : 1980 Arrival Date: 07/09/2023 Time: 14:31 Bed 17 Private MD: ED Physician Herman Hoffman HPI: 07/08 14:50 This 42 yrs old Male presents to ER via Ambulatory with complaints of Back cp Pain, Chest Pain. 14:50 The patient presents with pain that is acute, with no known mechanism of injury. The cp symptoms are located in the right scapular area and right subscapular area. Onset: The symptoms/episode began/occurred 3 day(s) ago. The pain radiates to the right side of chest. 14:50 Associated signs and symptoms: Pertinent positives: non-productive cough, Pertinent cp negatives: abdominal pain, fever, numbness, weakness. The problem was sustained from unknown cause. Modifying factors: the patient symptoms are aggravated by movement, deep inspiration. Severity of symptoms: in the emergency department the symptoms are unchanged, despite home interventions. Historical: - Allergies: 14:43 No Known Allergies; kd3 - PSHx: 14:43 2 backk surgeries; Appendectomy; kd3 - Immunization history:: Adult Immunizations up to date. - Social history:: Smoking status: Patient reports the use of cigarette tobacco products, smokes one pack cigarettes per day. ROS: 14:55 Back: Positive for pain at rest, pain with movement, of the right scapular area and cp right subscapular area, pain with deep inspiration, 14:55 Cardiovascular: Positive for chest pain, of the right side of chest, Negative for cp edema, palpitations, 14:55 Respiratory: Positive for cough, 14:55 Eyes: Negative for injury, pain, redness, and discharge, cp 14:55 Constitutional: Negative for body aches, chills, fever, poor PO intake, 14:55 ENT: Negative for drainage from ear(s), ear pain, sore throat, difficulty swallowing, difficulty handling secretions, 14:55 Neck: Negative for pain with movement, pain at rest, stiffness, 14:55 Neuro: Negative for altered mental status, dizziness, headache, numbness, syncope, weakness, 14:55 All other systems are negative, cp Exam: 14:48 ECG was reviewed by the Attending Physician. cp 15:00 Constitutional: The patient appears in no acute distress, alert, awake, cp non-diaphoretic, non-toxic, well developed, well nourished, uncomfortable, 15:00 Head/Face: Normocephalic, atraumatic. cp 15:00 Eyes: Periorbital structures: appear normal, Conjunctiva: normal, no exudate, no injection, Sclera: no appreciated abnormality, Lids and lashes: appear normal, bilaterally, 15:00 ENT: External ear(s): are unremarkable, Nose: is normal, Mouth: Lips: moist, Oral mucosa: pink and intact, moist, Posterior pharynx: Airway: no evidence of obstruction, patent, 15:00 Neck: ROM/movement: Meningeal signs: are not present, nuchal rigidity, is not appreciated, 15:00 Chest/axilla: Inspection: normal, Palpation: crepitus, is not appreciated, tenderness, that is moderate, of the left clavicle and anterior aspect of left upper chest, 15:00 Cardiovascular: Rate: normal, Rhythm: regular, Heart sounds: murmur, not appreciated, Edema: is not appreciated, JVD: is not appreciated, 15:00 Respiratory: the patient does not display signs of respiratory distress, Respirations: normal, no use of accessory muscles, no retractions, labored breathing, is not present, Breath sounds: are clear throughout, no decreased breath sounds, no stridor, no wheezing, 15:00 Abdomen/GI: Inspection: abdomen appears normal, Palpation: abdomen is soft and non-tender, in all quadrants, 15:00 Back: pain, that is moderate, of the right scapular area and right subscapular area, vertebral tenderness, is not appreciated, 15:00 Skin: cellulitis, is not appreciated, no rash present. 15:00 Neuro: Orientation: to person, place \T\ time. Mentation: is normal, Motor: moves all fours, strength is normal, Sensation: no obvious gross deficits, Vital Signs: 14:41 BP 135 / 93; Pulse 79; Resp 17; Temp 98.2(O); Pulse Ox 95% on R/A; Weight 99.79 kg; kd3 Height 6 ft. 1 in. ; Pain 10/10; 15:37 BP 129 / 85 RA Sitting; Pulse 70; Resp 14; Pulse Ox 98% on R/A; Pain 7/10; me1 15:40 BP 134 / 88; Pulse 74; Resp 14; Pulse Ox 98% on R/A; Pain 7/10; me1 16:30 BP 145 / 90; Pulse 73; Resp 21; Pulse Ox 99% on R/A; me1 17:30 BP 137 / 98; Pulse 70; Resp 18; Pulse Ox 98% on R/A; me1 18:07 BP 147 / 84; Pulse 77; Resp 21; Pulse Ox 100% on R/A; me1 14:41 Body Mass Index 29.03 (99.79 kg, 185.42 cm) kd3 14:41 Pain Scale: Adult kd3 15:37 Pain Scale: Adult me1 15:40 Pain Scale: Adult me1 MDM: 14:44 Patient medically screened. cp 15:00 Differential diagnosis: Abdominal Aortic Aneurysm costochondritis, chest wall wall, cp acute MT, illegal drug use. 17:26 Data reviewed: vital signs, nurses notes, lab test result(s), EKG, radiologic studies, cp plain films, and as a result, I will discharge patient. I considered the following discharge prescriptions or medication management in the emergency department Medications were administered in the Emergency Department. See MAR. Test considered but Not performed: CT: chest. Counseling: I had a detailed discussion with the patient and/or guardian regarding the historical points, exam findings, and any diagnostic results supporting the discharge/admit diagnosis, lab results, radiology results, to return to the emergency department if symptoms worsen or persist or if there are any questions or concerns that arise at home. Special discussion: Based on the patient's history, exam, and Dx evaluation, there is no indication for emergent intervention or inpatient Tx. It is understood by the patient/guardian that if the Sx's persist or worsen they need to return immediately for re-evaluation. 07/08 14:41 Order name: Basic Metabolic Panel; Complete Time: 16: [facility] 07/08 14:41 Order name: CBC with Diff; Complete Time: 16:02 3 07/08 14:41 Order name: Troponin HS; Complete Time: 16: [facility] 07/08 16:50 Interpretation: Reviewed. cp 07/08 14:48 Order name: LFT's; Complete Time: 16: cp 07/08 14:48 Order name: Lipase; Complete Time: 16:02 cp 07/08 15:01 Order name: Influenza Screen (a \T\ B); Complete Time: 16:02 cp 07/08 15:22 Order name: SARS-COV-2 Antigen Rapid; Complete Time: 16:02 EDMS 07/08 16:05 Order name: UDS; Complete Time: 16:49 cp 07/08 16:49 Interpretation: Normal except: DELMI POSITIVE; THC POSITIVE. cp 07/08 16:05 Order name: Urinalysis W/Microscopic; Complete Time: 16:49 cp 07/08 16:06 Order name: D-Dimer; Complete Time: 16:58 cp 07/08 16:59 Interpretation: Reviewed. 07/08 14:41 Order name: XRAY Chest (1 view); Complete Time: 16:02 kd3 07/08 14:41 Order name: EKG; Complete Time: 14:41 kd3 07/08 14:41 Order name: Cardiac monitoring; Complete Time: 15:44 kd3 07/08 14:41 Order name: EKG - Nurse/Tech; Complete Time: 14:41 kd3 07/08 14:41 Order name: IV Saline Lock; Complete Time: 15:06 kd3 07/08 14:41 Order name: Labs collected and sent; Complete Time: 15:44 kd3 07/08 14:41 Order name: O2 Per Protocol; Complete Time: 15:44 kd3 07/08 14:41 Order name: O2 Sat Monitoring; Complete Time: 15:44 kd3 07/08 14:48 Order name: Blood Pressure Recheck: bilateral upper extremity; Complete Time: 15:49 cp EC:48 Rate is 77 beats/min. Rhythm is regular. CT interval is normal. QRS interval is normal. cp QT interval is normal. T waves are Inverted in lead aVR. Interpreted by me. Reviewed by me. Administered Medications: 16:25 Drug: NS 0.9% IV 1000 ml IV at 1 bolus Per protocol; 1000 mL bolus Route: IV; Rate: 1 me1 bolus; Site: left antecubital; 17:38 Follow up: Response: No adverse reaction; IV Status: Completed infusion; IV Intake: me1 1000ml 16:26 Drug: Ketorolac IVP 15 mg IVP once Route: IVP; Site: left antecubital; me1 17:02 Follow up: Response: No adverse reaction; Pain is decreased me1 17:11 Drug: Methocarbamol IVPB 1 grams IVPB once over 1 hrs; (mix in NS 100 mL) Route: IVPB; me1 Infused Over: 1 hrs; Site: left antecubital; 18:21 Follow up: Response: No adverse reaction; Pain is decreased; IV Status: Completed me1 infusion; IV Intake: 100ml Disposition: 17:51 I was immediately available on-site in the Emergency Department for consultation in the ca3 care of the patient. Disposition Summary: 07/09/23 17:27 Discharge Ordered Notes: Location: Home cp Problem: new cp Symptoms: have improved cp Condition: Stable cp Diagnosis - Chest pain, unspecified cp - Dorsalgia, unspecified cp - Cocaine use, unspecified, uncomplicated cp Followup: cp - With: Private Physician - When: 2 - 3 days - Reason: Recheck today's complaints Discharge Instructions: - Discharge Summary Sheet cp - Acute Back Pain, Adult cp - Chest Wall Pain cp Forms: - Medication Reconciliation Form cp - Thank You Letter cp - Antibiotic Education cp - Prescription Opioid Use cp - Patient Portal Instructions cp - Leadership Thank You Letter cp Prescriptions: - Diclofenac Sodium 75 mg Oral Tablet Sustained Release - take 1 tablet ORAL route 2 times per day; 30 tablet; Refills: 0, Product cp Selection Permitted - methocarbamol 500 mg Oral tablet - take 2 tablets ORAL route 3 times per day; 30 tablet; Refills: 0, Product cp Selection Permitted Signatures: Dispatcher [facility] Fadi Esquivel PA PA cp Sims, Marcus, DO DO ca3 Mariely Almonte RN RN 3 Dionna Khan RN RN me1 Corrections: (The following items were deleted from the chart) 15:20 15:01 SARS-COV-2 RT PCR+[id number] ordered. [facility] 07/09 16:04 03 17:47 Data reviewed: vital signs, nurses notes, lab test result(s), EKG, cp radiologic studies, plain films, and as a result, I will discharge patient, cp 07/09 16:04 07/08 17:47 I considered the following discharge prescriptions or medication management cp in the emergency department Medications were administered in the Emergency Department. See MAR cp 07/09 16:04 03/07 17:47 Test considered but Not performed: CT: chest. cp cp 07/09 16:07/08 17:47 Counseling: I had a detailed discussion with the patient and/or guardian cp regarding the historical points, exam findings, and any diagnostic results supporting the discharge/admit diagnosis, lab results, radiology results, to return to the emergency department if symptoms worsen or persist or if there are any questions or concerns that arise at home, cp 07/09 16:07/08 17:47 Special discussion: Based on the patient's history, exam, and Dx cp evaluation, there is no indication for emergent intervention or inpatient Tx. It is understood by the patient/guardian that if the Sx's persist or worsen they need to return immediately for re-evaluation. cp
--- NOTE | 2023-07-09 17:28 | ER ---
Nurse's Notes [facility] Name: Heber Morris Age: 42 yrs Sex: Male : 1980 Arrival Date: 07/09/2023 Time: 14:31 Bed 17 Private MD: Diagnosis: Chest pain, unspecified;Dorsalgia, unspecified;Cocaine use, unspecified, uncomplicated Presentation: 07/08 14:41 Chief complaint: Patient states: I am having chest pain that started three days ago and kd3 has gotten worse. IT feels like pressure and it hurts more when i move and cough. It feels like a 10/10 and it gets worse when i breath too. The pain radiates to my back. I have no cardiac history. Coronavirus screen: Vaccine status: Patient reports being unvaccinated. Ebola Screen: No symptoms or risks identified at this time. Initial Sepsis Screen: Does the patient meet any 2 criteria? No. Patient's initial sepsis screen is negative. Does the patient have a suspected source of infection? No. Patient's initial sepsis screen is negative. Risk Assessment: Do you want to hurt yourself or someone else? Patient reports no desire to harm self or others. Onset of symptoms was July 09, 2023. 14:41 Method Of Arrival: Ambulatory kd3 14:41 Acuity: APOLONIA 3 kd3 Triage Assessment: 14:43 General: Appears uncomfortable, Behavior is calm, cooperative. Pain: Complains of pain kd3 in chest Pain radiates to back. Musculoskeletal: Circulation, motion, and sensation intact. Historical: - Allergies: 14:43 No Known Allergies; kd3 - PSHx: 14:43 2 backk surgeries; Appendectomy; kd3 - Immunization history:: Adult Immunizations up to date. - Social history:: Smoking status: Patient reports the use of cigarette tobacco products, smokes one pack cigarettes per day. Screenin:53 [facility] ED Fall Risk Assessment (Adult) History of falling in the last 3 months, me1 including since admission No falls in past 3 months (0 pts) Confusion or Disorientation No (0 pts) Intoxicated or Sedated No (0 pts) Impaired Gait No (0 pts) Mobility Assist Device Used No (0 pt) Altered Elimination No (0 pt) Score/Fall Risk Level 0 - 2 = Low Risk Maintained a safe environment, Provided non-skid footwear, Hourly rounding (assess needs \\T\\ fall precautionary measures) done. Abuse screen: Denies threats or abuse. Nutritional screening: No deficits noted. Tuberculosis screening: No symptoms or risk factors identified. Assessment: 15:53 General: Appears uncomfortable, well groomed, well developed, well nourished, Behavior me1 is calm, cooperative, appropriate for age, Reports right sided chest pain that radiates to the back, sharp, "7/10". Denies n/v/d. Started 3 days ago. Pain: Complains of pain in chest Pain radiates to back Pain currently is 7 out of 10 on a pain scale. Quality of pain is described as sharp, shooting, Pain began 2-3 days ago. Is continuous, Alleviated by. Neuro: Level of Consciousness is awake, alert, obeys commands, Oriented to person, place, time, situation, Appropriate for age. Cardiovascular: Capillary refill < 3 seconds Patient's skin is warm and dry. Respiratory: Airway is patent Trachea midline Respiratory effort is even, unlabored, Respiratory pattern is regular, symmetrical. Vital Signs: 14:41 BP 135 / 93; Pulse 79; Resp 17; Temp 98.2(O); Pulse Ox 95% on R/A; Weight 99.79 kg; kd3 Height 6 ft. 1 in. ; Pain 10/10; 15:37 BP 129 / 85 RA Sitting; Pulse 70; Resp 14; Pulse Ox 98% on R/A; Pain 7/10; me1 15:40 BP 134 / 88; Pulse 74; Resp 14; Pulse Ox 98% on R/A; Pain 7/10; me1 16:30 BP 145 / 90; Pulse 73; Resp 21; Pulse Ox 99% on R/A; me1 17:30 BP 137 / 98; Pulse 70; Resp 18; Pulse Ox 98% on R/A; me1 18:07 BP 147 / 84; Pulse 77; Resp 21; Pulse Ox 100% on R/A; me1 14:41 Body Mass Index 29.03 (99.79 kg, 185.42 cm) kd3 14:41 Pain Scale: Adult kd3 15:37 Pain Scale: Adult me1 15:40 Pain Scale: Adult me1 ED Course: 14:33 Patient arrived in ED. mg5 14:35 Page, Fadi, PA is PHCP. cp 14:35 Herman Hoffman DO is Attending Physician. cp 14:43 Triage completed. kd3 14:43 Arm band placed on right wrist. kd3 15:06 Lipase Sent. bc6 15:06 LFT's Sent. bc6 15:06 Basic Metabolic Panel Sent. bc6 15:06 CBC with Diff Sent. bc6 15:06 Troponin HS Sent. bc6 15:10 XRAY Chest (1 view) In Process Unspecified. EDMS 15:27 SARS-COV-2 Antigen Rapid Sent. bc6 15:27 Influenza Screen (a \\T\\ B) Sent. bc6 15:31 Dionna Khan, LEAH is Primary Nurse. me1 15:45 Client placed on continuous cardiac and pulse oximetry monitoring. NIBP monitoring me1 applied. library monitor on. Pulse ox on. NIBP on. 15:53 Patient has correct armband on for positive identification. Bed in low position. Call me1 light in reach. Side rails up X2. Provided Education on: POC. Verbalized understanding. . 15:53 No provider procedures requiring assistance completed. me1 15:58 Warm blanket given. me1 16:18 D-Dimer Sent. me1 16:18 Initial lab(s) drawn, by me, sent to lab. me1 16:25 Urine collected: clean catch specimen, cloudy. me1 16:26 Urinalysis W/Microscopic Sent. me1 16:26 UDS Sent. me1 18:22 IV discontinued, intact, bleeding controlled, No redness/swelling at site. Pressure me1 dressing applied. Administered Medications: 16:25 Drug: NS 0.9% IV 1000 ml IV at 1 bolus Per protocol; 1000 mL bolus Route: IV; Rate: 1 me1 bolus; Site: left antecubital; 17:38 Follow up: Response: No adverse reaction; IV Status: Completed infusion; IV Intake: me1 1000ml 16:26 Drug: Ketorolac IVP 15 mg IVP once Route: IVP; Site: left antecubital; me1 17:02 Follow up: Response: No adverse reaction; Pain is decreased me1 17:11 Drug: Methocarbamol IVPB 1 grams IVPB once over 1 hrs; (mix in NS 100 mL) Route: IVPB; me1 Infused Over: 1 hrs; Site: left antecubital; 18:21 Follow up: Response: No adverse reaction; Pain is decreased; IV Status: Completed me1 infusion; IV Intake: 100ml Medication: 15:53 VIS not applicable for this client. me1 Intake: 17:38 IV: 1000ml; Total: 1000ml. me1 18:21 IV: 100ml; Total: 1100ml. me1 Outcome: 17:27 Discharge ordered by MD. cp 18:22 Discharged to home ambulatory, with significant other, me1 18:22 Condition: stable 18:22 Discharge instructions given to patient, significant other, Instructed on discharge instructions, follow up and referral plans. medication usage, Demonstrated understanding of instructions, follow-up care, medications, Prescriptions given X 2, 18:22 Patient left the ED. me1 Signatures: Dispatcher [employer] EDMS Fadi Esquivel PA PA cp Doucette, Kyli, RN RN kd3 Jodi Oates bc6 Dionna Khan RN RN me1 Milli Walters mg5
[2023-07-09 18:44] VITALS: BP 147/84; TEMP 98.2; O2SAT 100
== END ==
LOC: ER 14:31
DX: R07.9 Chest pain, unspecified (principal); M54.9 Dorsalgia, unspecified; F14.90 Cocaine use, unspecified, uncomplicated; Z11.52 Encounter for screening for COVID-19
CPT/HCPCS: 96365; 96361; 93005; 85025; 81001; 80048; 36415; 85379; 80076; 84484; 83690; 80307; 87804 ×2; 71045; 96375; 99285; 87811; J2800; J7030